=== PATIENT | male | born 1975 | race Caucasian/White ===

== ENCOUNTER 2025-08-09 13:51 | Emergency (ER) | payer SELFPAY ==
[2025-08-09 14:01] VITALS: BP 145/82
[2025-08-09 14:17] LABS: Hematocrit 42.8 % (39.0-52.0); Hemoglobin 13.5 g/dL (13.0-18.0); Mean Corp Hgb Conc. 31.5 g/dL (33.0-37.0); Mean Corpuscular Volume 89.9 fL (80.0-94.0); Nucleated Red Blood Cells % 0 % (-); Platelet Count 233 10^3/uL (130-400); Red Cell Dist. Width 13.2 % (11.5-14.5)
[2025-08-09 14:38] LABS: ALT (SGPT) 71 U/L (0-50); AST (SGOT) 91 U/L (17-59); Albumin 4.4 g/dl (3.5-5.0); Alkaline Phosphatase 76 U/L (38-126); Blood Urea Nitrogen 19 mg/dl (9-20); Calcium 9.5 mg/dl (8.4-10.2); Carbon Dioxide 28 mmol/L (22-30); Chloride 104 mmol/L (98-107); Glucose 129 mg/dl (70-99); Potassium 4.1 mmol/L (3.5-5.1); Sodium 136 mmol/L (135-145); Total Protein 7.9 g/dl (6.3-8.2); eGFR > 60.00
--- NOTE | 2025-08-09 15:53 | ED.GENMED ---
History of Present Illness
General
Chief Complaint: Fever
Source: patient
Exam Limitations: none
Time Seen by Provider: 08/09/25 15:43
History of Present Illness
History of Present Illness:
49-year-old male presents with redness swelling and warmth to the right leg starting overnight. He states he developed a fever overnight and had sweats and chills. No known injury. No recent travel or surgery. He is healthy otherwise. There has
been no vomiting. Took some Tylenol and since then his fever has been gone. No other complaints at this time
Past History
Past History
ED Past Medical History: None
ED Past Surgical History: None
Phy Exam
Physical Exam
Physical Exam:
General: Well-appearing male no acute respiratory distress
HEENT: Normal cephalic atraumatic
Heart: Regular rate and rhythm
Lungs: Clear no wheeze
Skin: Erythema and warmth to the right anterior dow this is slightly tender to the touch no underlying fluctuance or induration. No open wounds or drainage
Vascular: 2+ DP pulse right foot
Course
Orders/Labs/Results
Orders:
Orders
08/09/25 14:10
CMP [Comprehensive Metabolic Panel] Urgent
Complete Blood Count/With Diff Urgent
08/09/25 15:51
Cephalexin Monohydrate [Keflex] 500 mg PO NOW STA
Sulfamethox./Trimethoprim Ds [Bactrim Ds 800 mg/160 mg] 1 tablet PO NOW STA
Abnormal Lab Results
08/09/25
14:10
WBC 11.8 H 10^3/uL
(4.8-10.8)
MCHC 31.5 L g/dL
(33.0-37.0)
Abs Immat Gran (auto) 0.1 H 10^3/uL
(0-0.05)
Absolute Neuts (auto) 10.2 H 10^3/uL
(1.4-6.5)
Absolute Lymphs (auto) 0.8 L 10^3/uL
(1.2-3.4)
Absolute Monos (auto) 0.7 H 10^3/uL
(0.1-0.6)
Neutrophils % 86.8 H %
(42.2-75.2)
Lymphocytes % 6.8 L %
(20.5-51.1)
Glucose 129 H mg/dl
(70-99)
AST 91 H U/L
(17-59)
ALT 71 H U/L
(0-50)
08/09/25 14:10
08/09/25 14:10
Vital Signs
Initial and Last Documented VS:
Initial Vital Signs
Temp Pulse Resp BP Pulse Ox
98.3 F 75 18 145/82 96
08/09/25 14:01 08/09/25 14:01 08/09/25 14:01 08/09/25 14:01 08/09/25 14:01
Last Documented Vital Signs
Temp Pulse Resp BP Pulse Ox
98.3 F 75 18 145/82 96
08/09/25 14:01 08/09/25 14:01 08/09/25 14:01 08/09/25 14:01 08/09/25 15:58
MDM/Problems Addressed
Differential Diagnosis Includes:
Redness pain and warmth to the right leg with recent fever. No evidence of abscess. I suspect cellulitis. No indication to order ultrasound for DVT. Discussed options for treatment including IV versus oral antibiotics. Patient wishes not to
stay in the hospital. Will start on Bactrim and To cover for staph and strep as he recently joined a gym and is concerned he may have contracted something from the gym. Return precautions were given otherwise
*Pulse Oximetry
SaO2: 96
Oxygen Mode of Delivery: Room air
Patient hypoxic: no
*Critical Care Note
Total Time (30-74mins, 75-104mins- exclusive of procedures): Not Applicable
ED Attending Note
-
Portions of this chart may have been created with voice recognition software.� Occasional wrong word or��sound alike� substitutions may have occurred due to the inherent limitations of voice recognition software.
Discharge Plan
Departure
Patient Disposition: Home (Routine Discharge)
Date of Disposition: 08/09/25
Time of Disposition: 15:59
Patient with high blood pressure during this ER visit?: No
Discharge Problem:
Cellulitis
Instructions: Cellulitis (skin infection) in adults (DC)
Prescriptions:
New
sulfamethoxazole-trimethoprim [Bactrim DS] 800-160 mg tablet
1 tab PO BID Qty: 14 0RF
cephalexin 500 mg capsule
500 mg PO Q6H 7 Days Qty: 28 0RF
No Action
amoxicillin-pot clavulanate 1 TABLET tablet
1 tab PO Q12 Qty: 14 0RF
Activity Restrictions/Additional Instructions:
Use warm compresses to the leg. Take antibiotics as directed. Please return here for increasing pain redness swelling fever vomiting or other concerning finding
Interventions
Interventions:
*Risk Screen - Suicide Last Done: 08/09/25 14:01
*General Assessment Last Done: 08/09/25 14:01
*Neglect/Abuse Screening Last Done: 08/09/25 14:01
*ED COVID-19 Vaccine History Last Done: 08/09/25 14:01
*ED Influenza Vaccine History Last Done: 08/09/25 14:01
ED- Neurological Assessment Last Done: 08/09/25 15:49
ED-Skin Assessment Last Done: 08/09/25 15:49
Discharge Date and Time
Print Language: FRISIAN
[2025-08-09] MEDS: KEFLEX 500 MG PO (16:08)
[2025-08-09] MEDS: BACTRIM DS 800 MG/160 MG 1 TABLET PO (16:08)
== END 2025-08-09 16:12 | disposition home or self-care (01) ==
LOC: EMR 13:51
PROVIDERS: Emergency Medicine; EMERGENCY PHYSICIAN Emergency Medicine
DX: L03.115 Cellulitis of right lower limb (principal)
CPT/HCPCS: 99283; 80053; 85025